=== PATIENT | male | born 1950 | race Caucasian/White ===

== ENCOUNTER 2019-05-30 13:14 | Outpatient (CLI) | payer MEDICARE ==
--- NOTE | 2019-05-30 16:39 | Ultrasound Report ---
Reason: RT LE PAIN WITH EXERTION, HAIR LOSS Procedure Date: 05/30/2019 Accession Number: [id number] / [id number] Procedure: US - Duplex Lwr Ext Arterial Bilat CPT Code: Final Report FULL RESULT: EXAM: BILATERAL LOWER EXTREMITY ARTERIAL DOPPLER ULTRASOUND EXAM DATE: 05/30/2019 02:00 PM. CLINICAL HISTORY: Right lower extremity pain with exertion for 4 months. Hair loss. COMPARISON: None. TECHNIQUE: Real-time sonographic vascular imaging was performed by the b2b sales executive, utilizing color-flow, Doppler flow, and spectral analysis. Multiple community representative static images were saved for review. FINDINGS: Right Leg: ASSEMBLER WIRE MESH GATE: PSV 73.9 cm/sec. Triphasic waveform. PSFA: PSV 52.6 cm/sec. Monophasic waveform. MSFA: No visible flow. DSFA: PSV 287 cm/sec. Monophasic waveform. PFA: PSV 137.4 cm/sec. Triphasic waveform. POP: PSV 132 cm/sec. Monophasic waveform. EDNA: PSV 27.9 cm/sec. Monophasic waveform. LIEUTENANT/DEPUTY: PSV 15.2 cm/sec. Monophasic waveform. PER: PSV 17.7 cm/sec. Monophasic waveform. DPA: PSV 13.2 cm/sec. Monophasic waveform. Left Leg: ASSEMBLER WIRE MESH GATE: PSV 86 cm/sec. Monophasic waveform. PSFA: PSV 73 cm/sec. Monophasic waveform. MSFA: PSV 181 cm/sec. Monophasic waveform. DSFA: PSV 163 cm/sec. Monophasic waveform. POP: PSV 27 cm/sec. Monophasic waveform. EDNA: PSV 12 cm/sec. Monophasic waveform. LIEUTENANT/DEPUTY: PSV 37 cm/sec. Monophasic waveform. PER: PSV 29 cm/sec. Monophasic waveform. DPA: PSV 5 cm/sec. Monophasic waveform. IMPRESSION: 1. 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 2. 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 RADIA
== END 2019-05-30 13:15 | disposition home or self-care (01) ==
LOC: DI 13:14
PROVIDERS: ATTEND Physician Assistant
DX: I70.203 Unspecified atherosclerosis of native arteries of extremities, bilateral legs (principal)
CPT/HCPCS: 93925